=== PATIENT | female | born 1980 | race Caucasian/White ===

== ENCOUNTER 2022-02-23 12:42 | Emergency (ER) | payer OTHER ==
[~2022-02-23] VITALS: Ht 149.9 cm; Wt 68.1 kg
--- NOTE | 2022-02-23 13:07 | PHYS DOC ---
General Adult EDM: Chief Complaint: INSECT BITE HPI: HPI: 41-year-old female presents with right ring finger pain. The patient got stung by a wasp while she was sitting at her desk in her house. It apparently was in her clothing somehow and stung her right ring finger. She is not allergic to stings. The patient has swelling and moderate pain. She decided come the emergency room. The patient freely admits that she has struggles with panic and anxiety. This has set off her anxiety. Finger pain is moderate in intensity. She has no other complaints at this time. [] Review of Systems: Review of Systems: Constitutional: Denies fever or chills Eyes: Denies change in visual acuity HENT: Denies nasal congestion or sore throat Respiratory: Denies cough or shortness of breath Cardiovascular: Denies chest pain or edema GI: Denies abdominal pain, nausea, vomiting, bloody stools or diarrhea : Denies dysuria Musculoskeletal: Denies back pain or joint pain Integument: Wasp sting right ring finger Neurologic: Denies headache, focal weakness or sensory changes Endocrine: Denies polyuria or polydipsia Lymphatic: Denies swollen glands Psychiatric: Denies depression or anxiety Current Medications: Current Meds: Current Medications Medications (Trade) Dose Ordered Sig/Daisy Start Time Stop Time Status Last Admin Dose Admin Acetaminophen/ Hydrocodone Bitart (Lortab 5/325) 1 tab 1X ONCE 02/23/22 13:15 02/23/22 13:16 UNV Naproxen (Naprosyn) 500 mg 1X ONCE 02/23/22 13:15 02/23/22 13:16 UNV Allergies: Allergies: Allergies Coded Allergies Type Severity Reaction Last Updated Verified Penicillins Allergy Unknown 02/23/22 Yes Physical Exam: PE: Constitutional: Well developed, well nourished, no acute distress, non-toxic appearance. [] HENT: Normocephalic, atraumatic, bilateral external ears normal, oropharynx moist, no oral exudates, nose normal. [] Eyes: PERRLA, EOMI, conjunctiva normal, no discharge. [] Neck: Normal range of motion, no tenderness, supple, no stridor. [] Cardiovascular:Heart rate regular rhythm, no murmur [] Lungs & Thorax: Bilateral breath sounds clear to auscultation [] Abdomen: Bowel sounds normal, soft, no tenderness, no masses, no pulsatile masses. [] Skin: Warm, dry, no erythema, no rash. [] Back: No tenderness, no CVA tenderness. [] Extremities: Swelling and tenderness of the right ring finger, evidence of insect sting. No retained stinger. [] Neurologic: Alert and oriented X 3, normal motor function, normal sensory function, no focal deficits noted. [] Psychologic: Affect normal, judgement normal, mood anxious. [] EKG: EKG: [] Radiology/Procedures: Radiology/Procedures: [] Heart Score: C/O Chest Pain: N/A Risk Factors: Risk Factors: DM, Current or recent (<one month) smoker, HTN, HLP, family history of CAD, obesity. Risk Scores: Score 0 - 3: 2.5% MACE over next 6 weeks - Discharge Home Score 4 - 6: 20.3% MACE over next 6 weeks - Admit for Clinical Observation Score 7 - 10: 72.7% MACE over next 6 weeks - Early Invasive Strategies Course & Med Decision Making: Course & Med Decision Making Pertinent Labs and Imaging studies reviewed. (See chart for details) The patient does not appear to be having allergic reaction. She is having a normal reaction to a localized insect sting. I have given her pain medicine and anti-inflammatory. Have advised she continue to take anti-inflammatories at home. She is stable for discharge at this time. [] Eddie Disclaimer: Eddie Disclaimer: This electronic medical record was generated, in whole or in part, using a voice recognition dictation system. Departure Departure: Impression: Primary Impression: Wasp sting Disposition: HOME / SELF CARE / HOMELESS Condition: STABLE Patient Instructions: Bee, Wasp, or Hornet Sting GALI COKER DO February 23, 2022 13:07
[2022-02-23] MEDS ORDERED: NAPROXEN 500 MG TABLET PO ONE (13:15)
[2022-02-23] MEDS ORDERED: HYDROcodone/APAP 5/325MG 1 TAB TABLET PO ONE (13:15)
[2022-02-23 14:10] VITALS: BP 128/80
== END 2022-02-23 14:22 | disposition home or self-care (01) ==
LOC: ER 12:48
DX: T63.461A Toxic effect of venom of wasps, accidental (unintentional), initial encounter (principal); Z88.0 Allergy status to penicillin; Y92.89 Other specified places as the place of occurrence of the external cause
CPT/HCPCS: 99283